=== PATIENT | male | born 1950 ===

== ENCOUNTER 2021-03-10 03:46 | Outpatient (CLI) | payer MEDICARE, SELFPAY ==
[2021-03-10] MEDS: Albuterol HFA 18 GM 200 PUFF INH IH (11:35)
[2021-03-10] MEDS: Inhaler, Assist Device 1 EACH MC (11:35)
--- NOTE | 2021-03-11 16:10 | PFT_ITS ---
Date of service: 03/10/21 Time of Service: 10:01 Pulmonary Function Test Result Requesting Provider Duchene Indications: Dyspnea Interpretation Spirometry: There is no airflow limitation. A restrictive spirometry pattern is seen. There is a significant bronchodilator effect. Lung Volumes: Lung volumes are normal Diffusion Capacity: Diffusion is normal Airway Pressure: There is increased airways resistance Impression Restrictive spirometry with normal lung volumes likely represents pseudo- restriction from his obesity. Otherwise normal PFT. Clinical Correlation therefore is recommended.
== END 2021-03-10 03:47 | disposition home or self-care (01) ==
LOC: RT 03:46
PROVIDERS: PCP Nurse Practitioner Primary Care; Visit Provider Student in an Organized Health Care Education/Training Program
DX: R06.09 Other forms of dyspnea (principal); Z87.891 Personal history of nicotine dependence; Z77.098 Contact with and (suspected) exposure to other hazardous, chiefly nonmedicinal, chemicals; Z57.2 Occupational exposure to dust; E66.9 Obesity, unspecified; R94.2 Abnormal results of pulmonary function studies
CPT/HCPCS: 94060; 94726; 94729

== ENCOUNTER 2021-03-21 01:56 | Outpatient (CLI) | payer MEDICARE, SELFPAY ==
--- NOTE | 2021-03-21 07:45 | DI.CT_ITS ---
Exam(s) CT CHEST HIGH RESOLUTION EXAM: CT CHEST HIGH RESOLUTION CLINICAL HISTORY: Chronic cough and dyspnea - TBM vs bronchiectasis?,R05.3,R06.00. TECHNIQUE: Multi planar reconstructions were performed. CONTRAST MATERIAL: None COMPARISON: No prior chest imaging studies available time of this CT scan interpretation. FINDINGS: CHEST: LUNGS: No pulmonary infiltrates nor pleural effusions. In the superior segment of the left lower lob e there is a 3 millimeter pleural base nodule posteriorly. No other focal findings. No obvious inte rstitial disease. No bullae. Scratch. MEDIASTINUM: visualized thyroid unremarkable.No obvious axillary adenopathy CARDIAC: Heart size is normal. There is no pericardial effusion.Coronary artery calcification noted. Caliber thoracic aorta is within normal limits. VISUALIZED UPPER ABDOMEN: No obvious adrenal masses. OSSEOUS: No significant osseous lesions.. IMPRESSION: 1. There is a solitary 3 millimeter pleural base nodule in the superior segment of the left lower lob e. No other focal pulmonary findings nor pleural effusions 2. No intrathoracic adenopathy evident. 3. There RADIATION DOSE DELIVERED: 728mGy.cm Total DLP DATA REPOSITORY: All CT scans at this facility are submitted to the National Radiology Data Registry (NRDR) Dose Index Registry (DIR) with the [employer] ([employer]). RADIATION OPTIMIZATION: All CT scans at this facility use at least one of these dose optimization te chniques: automated exposure control; mA and/or kV adjustment per patient size (includes targeted exa ms where dose is matched to clinical indication); or iterative reconstruction.
== END 2021-03-21 02:16 ==
PROVIDERS: PCP Nurse Practitioner Primary Care; Visit Provider Student in an Organized Health Care Education/Training Program
DX: R05.3 Chronic cough (principal); R06.09 Other forms of dyspnea; R91.1 Solitary pulmonary nodule
CPT/HCPCS: 71250

== ENCOUNTER → 2022-09-29 00:17 | Outpatient (CLI) | payer MEDICARE, SELFPAY ==
--- NOTE | 2022-09-29 09:08 | DI.CT_ITS ---
Exam(s) CT CHEST WO EXAM: CT CHEST WO CLINICAL HISTORY: F/U PULMONARY NODULE,R91.1. TECHNIQUE: Multi planar reconstructions were performed. CONTRAST MATERIAL: None COMPARISON: CT CT CHEST WO CNTRST from 02/28/2022 FINDINGS: CHEST: LUNGS: No infiltrates nor pleural effusions. Tiny benign-appearing 2 millimeter nodule the lateral b douglas segment of the left lower lobe is unchanged from outside CT scan of February 2022. Posteriorly i n the left lower lobe there is a pleural based small nodular density which is also unchanged. There are no new nodules in either lung field. MEDIASTINUM: There is no obvious hilar nor mediastinal adenopathy. Visualized thyroid unremarkable.No obvious axillary adenopathy CARDIAC: Heart size is normal. There is no pericardial effusion.Caliber thoracic aorta within normal limits. There is coronary artery calcification noted. VISUALIZED UPPER ABDOMEN:Liver size is prominent. No splenomegaly. OSSEOUS: No fractures. No significant osseous lesions.. IMPRESSION: 1. Stable appearance of 2 small left lung benign-appearing findings when compared to outside CT scan of February 2022. No new ominous pulmonary nodules nor pleural effusions, nor intrathoracic adenopath y. RADIATION DOSE DELIVERED: 561.04mGy.cm Total DLP DATA REPOSITORY: All CT scans at this facility are submitted to the National Radiology Data Registry (NRDR) Dose Index Registry (DIR) with the [employer] ([employer]). RADIATION OPTIMIZATION: All CT scans at this facility use at least one of these dose optimization te chniques: automated exposure control; mA and/or kV adjustment per patient size (includes targeted exa ms where dose is matched to clinical indication); or iterative reconstruction.
== END ==
PROVIDERS: PCP Nurse Practitioner Primary Care; Visit Provider Student in an Organized Health Care Education/Training Program
DX: R91.1 Solitary pulmonary nodule (principal)
CPT/HCPCS: 71250

== ENCOUNTER → 2023-03-06 08:57 | Outpatient (BNVA) | payer MEDICARE, SELFPAY | PROVIDERS: PCP Nurse Practitioner Primary Care; Referring Provider Nurse Practitioner Primary Care; Visit Provider Physician Assistant Surgical | DX: R91.1 Solitary pulmonary nodule (principal); J45.909 Unspecified asthma, uncomplicated; R06.00 Dyspnea, unspecified | CPT/HCPCS: 99214 ==

== ENCOUNTER → 2023-08-20 08:04 | Outpatient (BNVA) | payer MEDICARE, SELFPAY | PROVIDERS: PCP Nurse Practitioner Primary Care; Referring Provider Nurse Practitioner Primary Care; Visit Provider Physician Assistant Surgical | DX: R91.1 Solitary pulmonary nodule (principal); J45.909 Unspecified asthma, uncomplicated; R06.00 Dyspnea, unspecified | CPT/HCPCS: 99214 ==

== ENCOUNTER → 2024-02-19 09:09 | Outpatient (BNVA) | payer MEDICARE, SELFPAY | PROVIDERS: PCP Nurse Practitioner Primary Care; Referring Provider Nurse Practitioner Primary Care; Visit Provider Physician Assistant Surgical | DX: J45.909 Unspecified asthma, uncomplicated (principal); R91.1 Solitary pulmonary nodule; R06.00 Dyspnea, unspecified | CPT/HCPCS: 99214 ==

== ENCOUNTER → 2024-08-18 10:15 | Outpatient (BNVA) | payer MEDICARE, SELFPAY | PROVIDERS: PCP Nurse Practitioner Primary Care; Referring Provider Nurse Practitioner Primary Care; Visit Provider Physician Assistant Surgical | DX: R91.1 Solitary pulmonary nodule (principal); J45.909 Unspecified asthma, uncomplicated; R06.00 Dyspnea, unspecified | CPT/HCPCS: 99214 ==